=== PATIENT | female | born 1980 | race American Indian/Alaskan Native ===

== ENCOUNTER 2018-04-19 10:34 | Emergency (ER) | payer MEDICARE ==
[2018-04-19] MEDS ORDERED: HCTZ PO ONE (11:05)
[2018-04-19] MEDS ORDERED: DELTASONE PO ONE (11:05)
[2018-04-19] MEDS ORDERED: ATROVENT IH ONE (11:05)
[2018-04-19] MEDS ORDERED: PROVENTIL IH ONE (11:05)
--- NOTE | 2018-04-19 11:12 | Emergency Department Report ---
- General Chief Complaint: Adult Asthma Stated Complaint: ASTHMA Source: patient Mode of arrival: Ambulatory Limitations: No Limitations - History of Present Illness Initial Comments: 37-year-old female presents the ED with complaint of cough, runny nose, wheezing times one day. The patient and decided to come to the ER for further evaluation. Patient states she used her inhaler, however, it did not help. Reports history of hypertension, states ran out of her hydrochlorothiazide and triamterene a few days ago. MD Complaint: cough, rhinorrhea, nasal congestion -: days(s) (1) Severity: mild Consistency: intermittent Improves With: nothing Worsens With: nothing Associated Symptoms: rhinorrhea, cough. denies: fever, chills Treatments Prior to Arrival: other (albuterol inhaler) - Related Data Previous Rx's Medication Instructions Recorded Last Taken Type ALBUTEROL Inhaler(NF) [VENTOLIN 1 puff IH Q4HR PRN #1 inha 04/19/18 Unknown Rx Inhaler(NF)] Benzonatate [Tessalon Perles] 100 mg PO Q8HR PRN #20 capsule 04/19/18 Unknown Rx Triamter/Hctz 37.5-25 mg 1 tab PO QDAY #30 tablet 04/19/18 Unknown Rx [Maxzide-25] predniSONE [Prednisone] 50 mg PO DAILY #5 tablet 04/19/18 Unknown Rx Allergies Allergy/AdvReac Type Severity Reaction Status Date / Time No Known Allergies Allergy Verified 04/19/18 10:38 ED Review of Systems ROS: Stated complaint: ASTHMA Other details as noted in HPI Comment: All other systems reviewed and negative Constitutional: chills. denies: fever Respiratory: cough, wheezing Cardiovascular: denies: chest pain ED Past Medical Hx - Past Medical History Previous Medical History?: Yes Hx Hypertension: Yes (non-compliant) Hx Asthma: Yes - Surgical History Past Surgical History?: No - Social History Smoking Status: Never Smoker Substance Use Type: None - Medications Home Medications: Home Medications Medication Instructions Recorded Confirmed Last Taken Type ALBUTEROL Inhaler(NF) [VENTOLIN 1 puff IH Q4HR PRN #1 inha 04/19/18 Unknown Rx Inhaler(NF)] Benzonatate [Tessalon Perles] 100 mg PO Q8HR PRN #20 capsule 04/19/18 Unknown Rx Triamter/Hctz 37.5-25 mg 1 tab PO QDAY #30 tablet 04/19/18 Unknown Rx [Maxzide-25] predniSONE [Prednisone] 50 mg PO DAILY #5 tablet 04/19/18 Unknown Rx ED Physical Exam - General Limitations: No Limitations General appearance: alert, in no apparent distress - Head Head exam: Present: atraumatic, normocephalic - Eye Eye exam: Present: normal appearance - ENT ENT exam: Present: mucous membranes moist - Neck Neck exam: Present: normal inspection - Respiratory Respiratory exam: Present: wheezes. Absent: respiratory distress - Cardiovascular Cardiovascular Exam: Present: normal rhythm, tachycardia - GI/Abdominal GI/Abdominal exam: Present: soft. Absent: distended - Extremities Exam Extremities exam: Present: normal inspection - Neurological Exam Neurological exam: Present: alert, oriented X3 - Psychiatric Psychiatric exam: Present: normal affect, normal mood - Skin Skin exam: Present: warm, dry, intact, normal color ED Course Vital Signs 04/19/18 04/19/18 04/19/18 10:38 11:04 12:56 Temperature 97.3 F L 97.8 F Pulse Rate 104 H 94 H 80 Respiratory 20 18 14 Rate Blood Pressure 205/112 Blood Pressure 174/104 174/98 [Right] O2 Sat by Pulse 97 97 100 Oximetry ED Medical Decision Making - Medical Decision Making 37-year-old female with URI symptoms and asthma exacerbation. Patient in no respiratory distress, however wheezing present on exam. O2 sats normal. Blood pressure initially elevated due to noncompliance with medications. Hydrochlorothiazide 25 mg given. Nebulizer treatment and prednisone and also given. Wheezing resolved. Will discharge at this time. Outpatient follow-up given. Refills of medications given. - Differential Diagnosis asthma, URI Critical care attestation.: If time is entered above; I have spent that time in minutes in the direct care of this critically ill patient, excluding procedure time. ED Disposition Clinical Impression: Asthma with acute exacerbation, Essential hypertension Disposition: TO HOME OR SELFCARE Is pt being admited?: No Condition: Stable Instructions: Asthma (ED) Prescriptions: ALBUTEROL Inhaler(NF) [VENTOLIN Inhaler(NF)] 1 puff IH Q4HR PRN #1 inha PRN Reason: Wheezing Benzonatate [Tessalon Perles] 100 mg PO Q8HR PRN #20 capsule PRN Reason: Cough predniSONE [Prednisone] 50 mg PO DAILY #5 tablet Triamter/Hctz 37.5-25 mg [Maxzide-25] 1 tab PO QDAY #30 tablet Referrals: [facility] [Provider Group] - 3-5 Days OCHOA MANRIQUE MD [Staff Physician] - 3-5 Days Time of Disposition: 12:49
[2018-04-19 14:16] VITALS: BP 174/98
== END 2018-04-19 12:56 | disposition home or self-care (01) ==
LOC: ED 10:34
DX: J45.901 Unspecified asthma with (acute) exacerbation (principal); I10 Essential (primary) hypertension; J06.9 Acute upper respiratory infection, unspecified
CPT/HCPCS: 94640; 99283; J7512

== ENCOUNTER 2018-07-24 01:53 | Emergency (ER) | payer MEDICARE, MEDICAID ==
[2018-07-24] MEDS ORDERED: PROVENTIL IH ONE (02:16)
[2018-07-24] MEDS ORDERED: DELTASONE PO ONE (02:17)
[2018-07-24] MEDS ORDERED: IBUPROFEN PO ONE (02:20)
--- NOTE | 2018-07-24 02:39 | XRay Report ---
PROCEDURE: XR CHEST ROUTINE 2V TECHNIQUE: 2 views HISTORY: SOB with asthma COMPARISONS: 06/13/2018 FINDINGS: No infiltrate, pleural effusion, or pneumothorax seen. The cardiomediastinal silhouette is normal. Normal lung inflation. IMPRESSION: Negative chest. This document is electronically signed by Maco Batres MD., July 24 2018 02:37:41 AM ET
--- NOTE | 2018-07-24 07:24 | Emergency Department Report ---
ED Asthma HPI - General Chief Complaint: Adult Asthma Stated Complaint: ASTHMA Time Seen by Provider: 07/24/18 07:15 Source: patient Mode of arrival: Ambulatory Limitations: No Limitations - History of Present Illness Initial Comments: This is a 38-year-old female nontoxic, well nourished in appearance, no acute signs of distress presents to the ED with c/o of acute on chronic asthma exacerbation. Patient stated she is out of her albuterol inhaler 1 month. Patient stated that she has seasonal allergies to pollen and has been outside that might have triggered her symptoms. Patient denies any cough. Patient denies any sick contact. Patient denies any recent travels, long car, recent hospital stays. Patient denies any calf pain or calf tenderness. Patient denies any chest pain, short of breath, fever, chills, nausea, vomiting, hemoptysis, numbness, tingling, headache or stiff neck. Past medical history includes asthma. MD Complaint: "asthma attack", wheezing -: This morning Asthma History: childhood onset Severity: mild Context: ran out of meds Associated Symptoms: none - Related Data Previous Rx's Medication Instructions Recorded Last Taken Type Triamter/Hctz 37.5-25 mg 1 tab PO QDAY #30 tablet 04/19/18 Unknown Rx [Maxzide-25] ALBUTEROL Inhaler(NF) [VENTOLIN 1 puff IH Q4HR PRN #1 inha 06/14/18 Unknown Rx Inhaler(NF)] Benzonatate [Tessalon Perles] 100 mg PO Q8HR PRN #20 capsule 06/14/18 Unknown Rx predniSONE [Prednisone] 50 mg PO DAILY #5 tablet 06/14/18 Unknown Rx ALBUTEROL Inhaler(NF) [VENTOLIN 2 puff IH Q4-6H PRN #1 inha 07/24/18 Unknown Rx Inhaler(NF)] Prednisone [predniSONE 10 mg 10 mg PO .TAPER #1 tab.ds.pk 07/24/18 Unknown Rx (6-Day Pack, 21 Tabs)] Allergies Allergy/AdvReac Type Severity Reaction Status Date / Time No Known Allergies Allergy Verified 04/19/18 10:38 ED Review of Systems ROS: Stated complaint: ASTHMA Other details as noted in HPI Constitutional: denies: chills, fever Eyes: denies: eye pain, eye discharge, vision change ENT: denies: ear pain, throat pain Respiratory: shortness of breath, wheezing. denies: cough Cardiovascular: denies: chest pain, palpitations Endocrine: no symptoms reported Gastrointestinal: denies: abdominal pain, nausea, diarrhea Genitourinary: denies: urgency, dysuria, discharge Musculoskeletal: denies: back pain, joint swelling, arthralgia Skin: denies: rash, lesions Neurological: denies: headache, weakness, paresthesias Psychiatric: denies: anxiety, depression Hematological/Lymphatic: denies: easy bleeding, easy bruising ED Past Medical Hx - Past Medical History Previous Medical History?: Yes Hx Hypertension: Yes (non-compliant) Hx Asthma: Yes Additional medical history: Seasonal Allergies - Surgical History Past Surgical History?: No - Social History Smoking Status: Never Smoker - Medications Home Medications: Home Medications Medication Instructions Recorded Confirmed Last Taken Type Triamter/Hctz 37.5-25 mg 1 tab PO QDAY #30 tablet 04/19/18 Unknown Rx [Maxzide-25] ALBUTEROL Inhaler(NF) [VENTOLIN 1 puff IH Q4HR PRN #1 inha 06/14/18 Unknown Rx Inhaler(NF)] Benzonatate [Tessalon Perles] 100 mg PO Q8HR PRN #20 capsule 06/14/18 Unknown Rx predniSONE [Prednisone] 50 mg PO DAILY #5 tablet 06/14/18 Unknown Rx ALBUTEROL Inhaler(NF) [VENTOLIN 2 puff IH Q4-6H PRN #1 inha 07/24/18 Unknown Rx Inhaler(NF)] Prednisone [predniSONE 10 mg 10 mg PO .TAPER #1 tab.ds.pk 07/24/18 Unknown Rx (6-Day Pack, 21 Tabs)] ED Physical Exam - General Limitations: No Limitations General appearance: alert, in no apparent distress - Head Head exam: Present: atraumatic, normocephalic - Eye Eye exam: Present: normal appearance - Neck Neck exam: Present: normal inspection, full ROM. Absent: tenderness, meningismus, lymphadenopathy - Respiratory Respiratory exam: Present: normal lung sounds bilaterally. Absent: respiratory distress, wheezes, rales, rhonchi, stridor, chest wall tenderness, accessory muscle use, decreased breath sounds, prolonged expiratory - Cardiovascular Cardiovascular Exam: Present: regular rate, normal rhythm, normal heart sounds. Absent: irregular rhythm, systolic murmur, diastolic murmur, rubs, gallop - Extremities Exam Extremities exam: Present: normal inspection, full ROM - Back Exam Back exam: Present: normal inspection, full ROM - Neurological Exam Neurological exam: Present: alert, oriented X3 - Psychiatric Psychiatric exam: Present: normal affect, normal mood - Skin Skin exam: Present: warm, dry, intact, normal color. Absent: rash ED Course Vital Signs 07/24/18 07/24/18 07/24/18 02:05 02:27 02:50 Temperature 97.7 F Pulse Rate 107 H Pulse Rate [ 106 H Anterior Bilateral Throughout] Respiratory 20 20 Rate Respiratory 16 Rate [Anterior Bilateral Throughout] Blood Pressure 162/102 O2 Sat by Pulse 97 Oximetry 07/24/18 07/24/18 03:02 03:27 Temperature Pulse Rate Pulse Rate [ 120 H Anterior Bilateral Throughout] Respiratory 20 Rate Respiratory 16 Rate [Anterior Bilateral Throughout] Blood Pressure O2 Sat by Pulse Oximetry - Reevaluation(s) Reevaluation #1: 07/24/18 07:24 Patient is speaking in full sentences with no signs of distress noted. ED Medical Decision Making - Medical Decision Making This is a 38-year-old male that presents with asthma exacerbation. Patient is stable and was examined by me. Chest x-ray has been obtained and dictated by the radiologist within normal limits. Prior to my interview and exam RN stated that patient had bilateral recent upper lower lobes. Patient is notified of the x-ray report with no questions noted by the patient. Patient did receive breathing treatment and steroids in the ED which patient the symptoms has resolved and subsided. Posttreatment and there is no wheezing upon auscultation. Patient is discharged with albuterol and prednisone. Patient was referred to Follow-up with a primary care doctor in 3-5 days or if symptoms worsen and continue return to emergency room as soon as possible. At time of discharge, the patient does not seem toxic or ill in appearance. No acute signs of distress noted. Patient agrees to discharge treatment plan of care. No further questions noted by the patient. This chart is dictated with using [employer] Dictation [employer] Critical care attestation.: If time is entered above; I have spent that time in minutes in the direct care of this critically ill patient, excluding procedure time. ED Disposition Clinical Impression: Asthma exacerbation Qualifiers: Asthma severity: mild Asthma persistence: intermittent Qualified Code(s): J45.21 - Mild intermittent asthma with (acute) exacerbation Disposition: - TO HOME OR SELFCARE Is pt being admited?: No Does the pt Need Aspirin: No Condition: Stable Instructions: Asthma (ED) Additional Instructions: Follow-up with a primary care doctor in 3-5 days or if symptoms worsen and continue return to emergency room as soon as possible. Prescriptions: Prednisone [predniSONE 10 mg (6-Day Pack, 21 Tabs)] 10 mg PO .TAPER #1 tab.ds.pk ALBUTEROL Inhaler(NF) [VENTOLIN Inhaler(NF)] 2 puff IH Q4-6H PRN #1 inha PRN Reason: Wheezing Referrals: [facility] JANEENCOSTA MD FRANCY [Primary Care Provider] - 3-5 Days PRIMARY CAREMD [Referring] - 3-5 Days KAITLIN BRUNNER MD [Staff Physician] - 3-5 Days [facility] [Outside] - 3-5 Days Forms: Work/School Release Form(ED)
[2018-07-24 08:29] VITALS: BP 140/90
== END 2018-07-24 08:04 | disposition home or self-care (01) ==
LOC: ED 01:53
DX: J45.901 Unspecified asthma with (acute) exacerbation (principal); I10 Essential (primary) hypertension
CPT/HCPCS: 71046; 94640; 99283; J7512

== ENCOUNTER 2018-09-16 17:00 | Emergency (ER) | payer MEDICARE ==
[2018-09-16] MEDS ORDERED: PROVENTIL IH ONE (17:42)
[2018-09-16] MEDS ORDERED: ATROVENT IH ONE (17:42)
[2018-09-16] MEDS ORDERED: MAGNESIUM SULFATE 2GM/50ML 2 GM/50 ML BAG IV ONE (17:43)
[2018-09-16] MEDS ORDERED: SOLU-Medrol IV ONE (17:43)
--- NOTE | 2018-09-16 17:48 | Emergency Department Report ---
HPI - General Chief Complaint: Adult Asthma Time Seen by Provider: 09/16/18 17:36 - HPI HPI: Room 8 The patient is a 38-year-old female presenting with chief complaint shortness of breath. The patient states her asthma has been "flaring up" for the past 2-3 days. Patient states she's been using her inhaler at home with minimal improvement. Patient states her shortness of breath began to increase prompting her to call EMS last night. Patient was given nebulizers and improved. The patient states 06:00 this morning shortness of breath return prompting her to call EMS again. Patient was administered a breathing treatment prior to arrival states she feels improved somewhat Location: [See above] Duration: [See above] Quality: [See above] Severity: [See above] Modifying factors: [see above] Context: [see above] Mode of transportation: [not driving] ED Past Medical Hx - Past Medical History Previous Medical History?: Yes Hx Hypertension: Yes (non-compliant) Hx Asthma: Yes Additional medical history: Seasonal Allergies - Surgical History Past Surgical History?: No - Family History Family history: no significant - Social History Smoking Status: Never Smoker Substance Use Type: None - Medications Home Medications: Home Medications Medication Instructions Recorded Confirmed Last Taken Type Triamter/Hctz 37.5-25 mg 1 tab PO QDAY #30 tablet 04/19/18 Unknown Rx [Maxzide-25] ALBUTEROL Inhaler(NF) [VENTOLIN 1 puff IH Q4HR PRN #1 inha 06/14/18 Unknown Rx Inhaler(NF)] Benzonatate [Tessalon Perles] 100 mg PO Q8HR PRN #20 capsule 06/14/18 Unknown Rx predniSONE [Prednisone] 50 mg PO DAILY #5 tablet 06/14/18 Unknown Rx ALBUTEROL Inhaler(NF) [VENTOLIN 2 puff IH Q4-6H PRN #1 inha 07/24/18 Unknown Rx Inhaler(NF)] Prednisone [predniSONE 10 mg 10 mg PO .TAPER #1 tab.ds.pk 07/24/18 Unknown Rx (6-Day Pack, 21 Tabs)] ALBUTEROL Inhaler (OR & NICU) 2 puff IH QID PRN #1 inhalation 09/16/18 Unknown Rx [Proair] Prednisone [predniSONE 10 mg 10 mg PO .TAPER #1 tab.ds.pk 09/16/18 Unknown Rx (6-Day Pack, 21 Tabs)] amLODIPine [Norvasc] 5 mg PO DAILY #90 tab 09/16/18 Unknown Rx ED Review of Systems ROS: Stated complaint: VIKI Other details as noted in HPI Constitutional: denies: fever Eyes: denies: eye pain ENT: denies: throat pain Respiratory: cough, shortness of breath, wheezing Cardiovascular: denies: chest pain Endocrine: no symptoms reported Gastrointestinal: denies: abdominal pain Genitourinary: denies: dysuria Musculoskeletal: denies: back pain Neurological: denies: headache Physical Exam - Physical Exam Vital Signs: Vital Signs 09/16/18 17:01 Temperature 98.4 F Pulse Rate 98 H Respiratory 20 Rate Blood Pressure 161/95 [Left] O2 Sat by Pulse 95 Oximetry Physical Exam: GENERAL: The patient is well-developed well-nourished female lying on stretcher not appearing to be in acute distress. [] HEENT: Normocephalic. Atraumatic. Extraocular motions are intact. Patient has moist mucous membranes. NECK: Supple. Trachea midline CHEST/LUNGS: Faint occasional wheezing bilaterally. There is no respiratory distress noted. HEART/CARDIOVASCULAR: Regular. There is no tachycardia. There is no gallop rub or murmur. ABDOMEN: Abdomen is soft, nontender. Patient has normal bowel sounds. There is no abdominal distention. SKIN: There is no rash. There is no edema. There is no diaphoresis. NEURO: The patient is awake, alert, and oriented. The patient is cooperative. The patient has normal speech MUSCULOSKELETAL: There is no evidence of acute injury. ED Course Vital Signs 09/16/18 17:01 Temperature 98.4 F Pulse Rate 98 H Respiratory 20 Rate Blood Pressure 161/95 [Left] O2 Sat by Pulse 95 Oximetry ED Medical Decision Making - Radiology Data Radiology results: report reviewed (chest x-ray), image reviewed (chest x-ray) interpreted by me: Chest x-ray-no focal infiltrates, no pneumothorax [facility] [address] [place] [address] XRay Report Signed Patient: ADAL FLETCHER MR#: [id number] : 1980 Acct:[id number] Age/Sex: 38 / F ADM Date: 09/16/18 Loc: ED Attending Dr: Ordering Physician: DADA MONTANEZ Date of Service: 09/16/18 Procedure(s): XR chest 1V ap Accession Number(s): [id number] cc: DADA MONTANEZ Fluoro Time In Minutes: PROCEDURE: XR CHEST 1V AP TECHNIQUE: Chest radiograph single view. HISTORY: SOB FINDINGS: Frontal view of the chest was acquired and compared to the prior examination of July 24, 2018. The heart is normal in size. The lungs appear clear. The pleura and mediastinum are within normal limits. IMPRESSION: No active disease in the chest This document is electronically signed by Song Michaels MD., September 16 2018 06:03:30 PM ET Transcribed By: LUCRETIA Dictated By: SONG MICHAELS MD Electronically Authenticated By: SONG MICHAELS MD Signed Date/Time: 09/16/181804 DD/ 50 TD/TT: 09/16/181750 - Differential Diagnosis asthma exacerbation Critical care attestation.: If time is entered above; I have spent that time in minutes in the direct care of this critically ill patient, excluding procedure time. ED Disposition Clinical Impression: Acute asthma exacerbation, Shortness of breath Disposition: DC-01 TO HOME OR SELFCARE Is pt being admited?: No Does the pt Need Aspirin: No Condition: Stable Instructions: Asthma (ED) Additional Instructions: Return to the emergency department immediately should you develop worsening symptoms, fever, inability to tolerate food or liquid or any other concerns. Prescriptions: amLODIPine [Norvasc] 5 mg PO DAILY #90 tab Prednisone [predniSONE 10 mg (6-Day Pack, 21 Tabs)] 10 mg PO .TAPER #1 tab.ds.pk ALBUTEROL Inhaler (OR & NICU) [Proair] 2 puff IH QID PRN #1 inhalation PRN Reason: Shortness Of Breath Referrals: GONZALO BURGER MD [Primary Care Provider] - 3-5 Days KAITLIN TREVINO MD [Staff Physician] - 3-5 Days Time of Disposition: 19:28
--- NOTE | 2018-09-16 18:05 | XRay Report ---
PROCEDURE: XR CHEST 1V AP TECHNIQUE: Chest radiograph single view. HISTORY: SOB FINDINGS: Frontal view of the chest was acquired and compared to the prior examination of July 24. The heart is normal in size. The lungs appear clear. The pleura and mediastinum are within normal garcia its. IMPRESSION: No active disease in the chest This document is electronically signed by Song Michaels MD., September 16 2018 06:03:30 PM ET
[2018-09-16 20:02] VITALS: BP 143/86
== END 2018-09-16 20:30 | disposition home or self-care (01) ==
LOC: ED 17:00
DX: J45.901 Unspecified asthma with (acute) exacerbation (principal); I10 Essential (primary) hypertension
CPT/HCPCS: 71045; 94640; 96365; 96375; 99284; J2930; J3475

== ENCOUNTER 2018-09-20 03:57 | Emergency (ER) | payer MEDICARE ==
[2018-09-20 05:37] VITALS: BP 172/106
[2018-09-20] MEDS ORDERED: DUONEB *Not for PRN Use IH ONE (05:39)
[2018-09-20 06:14] LABS: Alanine Aminotransferase 5 units/L (7-56); Albumin 3.9 g/dL (3.9-5); BUN/Creatinine Ratio 10; Blood Urea Nitrogen 9 mg/dL (7-17); Calcium 8.7 mg/dL (8.4-10.2); Hemolysis Index 7
--- NOTE | 2018-09-20 06:14 | XRay Report ---
PROCEDURE: XR CHEST 1V AP TECHNIQUE: Chest radiograph single view. HISTORY: conner COMPARISONS: 09/16/2018 . FINDINGS: Mild patient rotation. No mediastinal shift. Cardiac silhouette is not enlarged. No pneumothorax, eff usion, or focal pulmonary opacity identified. No acute skeletal findings. IMPRESSION: No acute pulmonary finding identified. This document is electronically signed by Darrius Verduzco MD., September 20 2018 06:13:09 AM ET
[2018-09-20 06:21] LABS: Basophils % (Auto) 0.6 % (0.0-1.8); Eosinophils # (Auto) 0.2 K/mm3 (0.0-0.4); Eosinophils % (Auto) 3.1 % (0.0-4.3); Hematocrit 36.4 % (30.3-42.9); Hemoglobin 11.9 gm/dl (10.1-14.3); Lymphocytes # (Auto) 0.5 K/mm3 (1.2-5.4); Lymphocytes % (Auto) 6.8 % (13.4-35.0); Mean Corpuscular HGB Conc 33 % (30-34); Mean Corpuscular Volume 80 fl (79-97); Monocytes # (Auto) 0.2 K/mm3 (0.0-0.8); Monocytes % (Auto) 2.1 % (0.0-7.3); Platelet Count 321 K/mm3 (140-440); Red Blood Count 4.53 M/mm3 (3.65-5.03); Red Cell Distribution Width 15.8 % (13.2-15.2)
--- NOTE | 2018-09-20 07:30 | Emergency Department Report ---
ED Shortness of Breath HPI - General Chief Complaint: Dyspnea/Respdistress Stated Complaint: VIKI Time Seen by Provider: 09/20/18 07:24 Source: patient, EMS Mode of arrival: Stretcher Limitations: No Limitations - History of Present Illness Initial Comments: 38-year-old female with history of asthma who presents to ED with report of asthma attack, onset last night. Patient states she used her albuterol inhaler without relief. Does not have a nebulizer machine at home. Reports dry cough, denies fever. Patient given Solu-Medrol and albuterol nebs by EMS. Complaint: "asthma attack" -: Last night Severity: moderate Consistency: constant Improves With: nothing Worsens With: nothing Known History Of: asthma Associated Symptoms: cough Treatments Prior to Arrival: bronchodilator - Related Data Home Oxygen Therapy: No Previous Rx's Medication Instructions Recorded Last Taken Type Triamter/Hctz 37.5-25 mg 1 tab PO QDAY #30 tablet 04/19/18 Unknown Rx [Maxzide-25] ALBUTEROL Inhaler(NF) [VENTOLIN 1 puff IH Q4HR PRN #1 inha 06/14/18 Unknown Rx Inhaler(NF)] Benzonatate [Tessalon Perles] 100 mg PO Q8HR PRN #20 capsule 06/14/18 Unknown Rx predniSONE [Prednisone] 50 mg PO DAILY #5 tablet 06/14/18 Unknown Rx ALBUTEROL Inhaler(NF) [VENTOLIN 2 puff IH Q4-6H PRN #1 inha 07/24/18 Unknown Rx Inhaler(NF)] Prednisone [predniSONE 10 mg 10 mg PO .TAPER #1 tab.ds.pk 07/24/18 Unknown Rx (6-Day Pack, 21 Tabs)] ALBUTEROL Inhaler (OR & NICU) 2 puff IH QID PRN #1 inhalation 09/16/18 Unknown Rx [Proair] Prednisone [predniSONE 10 mg 10 mg PO .TAPER #1 tab.ds.pk 09/16/18 Unknown Rx (6-Day Pack, 21 Tabs)] amLODIPine [Norvasc] 5 mg PO DAILY #90 tab 09/16/18 Unknown Rx Albuterol Sulfate [Proventil Hfa] 2 puff IH Q4HR PRN #1 hfa.aer.ad 09/20/18 Unknown Rx predniSONE [Deltasone] 50 mg PO QDAY #5 tab 09/20/18 Unknown Rx Allergies Allergy/AdvReac Type Severity Reaction Status Date / Time No Known Allergies Allergy Verified 09/16/18 17:33 ED Review of Systems ROS: Stated complaint: VIKI Other details as noted in HPI Comment: All other systems reviewed and negative Constitutional: denies: chills, fever Respiratory: cough, wheezing ED Past Medical Hx - Past Medical History Hx Hypertension: Yes (non-compliant) Hx Asthma: Yes Additional medical history: Seasonal Allergies - Social History Smoking Status: Never Smoker Substance Use Type: None - Medications Home Medications: Home Medications Medication Instructions Recorded Confirmed Last Taken Type Triamter/Hctz 37.5-25 mg 1 tab PO QDAY #30 tablet 04/19/18 Unknown Rx [Maxzide-25] ALBUTEROL Inhaler(NF) [VENTOLIN 1 puff IH Q4HR PRN #1 inha 06/14/18 Unknown Rx Inhaler(NF)] Benzonatate [Tessalon Perles] 100 mg PO Q8HR PRN #20 capsule 06/14/18 Unknown Rx predniSONE [Prednisone] 50 mg PO DAILY #5 tablet 06/14/18 Unknown Rx ALBUTEROL Inhaler(NF) [VENTOLIN 2 puff IH Q4-6H PRN #1 inha 07/24/18 Unknown Rx Inhaler(NF)] Prednisone [predniSONE 10 mg 10 mg PO .TAPER #1 tab.ds.pk 07/24/18 Unknown Rx (6-Day Pack, 21 Tabs)] ALBUTEROL Inhaler (OR & NICU) 2 puff IH QID PRN #1 inhalation 09/16/18 Unknown Rx [Proair] Prednisone [predniSONE 10 mg 10 mg PO .TAPER #1 tab.ds.pk 09/16/18 Unknown Rx (6-Day Pack, 21 Tabs)] amLODIPine [Norvasc] 5 mg PO DAILY #90 tab 09/16/18 Unknown Rx Albuterol Sulfate [Proventil Hfa] 2 puff IH Q4HR PRN #1 hfa.aer.ad 09/20/18 Unknown Rx predniSONE [Deltasone] 50 mg PO QDAY #5 tab 09/20/18 Unknown Rx ED Physical Exam - General Limitations: No Limitations General appearance: alert, in no apparent distress - Head Head exam: Present: atraumatic, normocephalic - Eye Eye exam: Present: normal appearance - ENT ENT exam: Present: mucous membranes moist - Neck Neck exam: Present: normal inspection - Respiratory Respiratory exam: Present: normal lung sounds bilaterally. Absent: respiratory distress - Cardiovascular Cardiovascular Exam: Present: regular rate, normal rhythm - GI/Abdominal GI/Abdominal exam: Present: soft. Absent: distended - Extremities Exam Extremities exam: Present: normal inspection - Neurological Exam Neurological exam: Present: alert, oriented X3 - Psychiatric Psychiatric exam: Present: normal affect, normal mood - Skin Skin exam: Present: warm, dry, intact, normal color ED Course Vital Signs 09/20/18 09/20/18 09/20/18 05:35 05:50 06:27 Temperature 98.0 F Pulse Rate 98 H Pulse Rate [ 104 H Throughout] Respiratory 29 H 24 Rate Respiratory 18 Rate [ Throughout] Blood Pressure 172/106 [Right] O2 Sat by Pulse 92 97 Oximetry 09/20/18 06:28 Temperature Pulse Rate Pulse Rate [ Throughout] Respiratory Rate Respiratory Rate [ Throughout] Blood Pressure [Right] O2 Sat by Pulse 97 Oximetry ED Medical Decision Making - Lab Data Result diagrams: 09/20/18 05:52 09/20/18 05:52 - Radiology Data Radiology results: report reviewed, image reviewed - Medical Decision Making - hx asthma - albuterol, solumedrol from EMS - alb/ atr nebs here in ED - wheezing resolved, no resp distress, feeling much better - Differential Diagnosis asthma, pneumonia Critical care attestation.: If time is entered above; I have spent that time in minutes in the direct care of this critically ill patient, excluding procedure time. ED Disposition Clinical Impression: Acute asthma exacerbation Disposition: - TO HOME OR SELFCARE Is pt being admited?: No Condition: Stable Instructions: Asthma (ED) Prescriptions: predniSONE [Deltasone] 50 mg PO QDAY #5 tab Albuterol Sulfate [Proventil Hfa] 2 puff IH Q4HR PRN #1 hfa.aer.ad PRN Reason: Wheezing Referrals: ARTURO MERCADO MD [Primary Care Provider] - 3-5 Days PRIMARY [facility]ARE, [Referring] - 3-5 Days [facility] [Provider Group] - 3-5 Days Time of Disposition: 07:32
== END 2018-09-20 07:59 | disposition home or self-care (01) ==
LOC: ED 03:57
DX: J45.901 Unspecified asthma with (acute) exacerbation (principal); I10 Essential (primary) hypertension; Z79.899 Other long term (current) drug therapy
CPT/HCPCS: 36415; 71045; 80053; 85025; 94640

== ENCOUNTER 2019-03-23 02:10 | Emergency (ER) | payer MEDICARE ==
[2019-03-23] MEDS ORDERED: ALBUTEROL 2.5 MG/3 ML NEBU IH ONE (02:32)
[2019-03-23] MEDS ORDERED: IPRATROPIUM 0.02% NEBU 2.5 ML IH ONE (02:32)
[2019-03-23] MEDS ORDERED: predniSONE 20 MG TAB PO ONE (02:33)
[2019-03-23 05:20] VITALS: BP 142/86
--- NOTE | 2019-03-23 05:22 | Emergency Department Report ---
ED Asthma HPI - General Chief Complaint: Dyspnea/Respdistress Stated Complaint: VIKI Time Seen by Provider: 03/23/19 02:32 Source: patient, EMS Mode of arrival: Stretcher Limitations: No Limitations - History of Present Illness Initial Comments: This is a 38-year-old [place] female who has history of asthma who states she's had increased wheezing cough for last 2 days. Patient no longer has medication for her nebulizer machine as she's run out. Patient denies fevers chills nausea vomiting diarrhea or sore throat or neck stiffness. Patient states cough is not productive. Patient states shortness of breath is worse with exertion. MD Complaint: "asthma attack" - Related Data Previous Rx's Medication Instructions Recorded Last Taken Type Triamter/Hctz 37.5-25 mg 1 tab PO QDAY #30 tablet 04/19/18 Unknown Rx [Maxzide-25] ALBUTEROL Inhaler(NF) [VENTOLIN 1 puff IH Q4HR PRN #1 inha 06/14/18 Unknown Rx Inhaler(NF)] Benzonatate [Tessalon Perles] 100 mg PO Q8HR PRN #20 capsule 06/14/18 Unknown Rx predniSONE [Prednisone] 50 mg PO DAILY #5 tablet 06/14/18 Unknown Rx ALBUTEROL Inhaler(NF) [VENTOLIN 2 puff IH Q4-6H PRN #1 inha 07/24/18 Unknown Rx Inhaler(NF)] Prednisone [predniSONE 10 mg 10 mg PO .TAPER #1 tab.ds.pk 09/16/18 Unknown Rx (6-Day Pack, 21 Tabs)] amLODIPine 5 mg PO DAILY #90 tab 09/16/18 Unknown Rx Albuterol Sulfate [Proventil Hfa] 2 puff IH Q4HR PRN #1 hfa.aer.ad 09/20/18 Unknown Rx predniSONE [Deltasone] 50 mg PO QDAY #5 tab 09/20/18 Unknown Rx ALBUTEROL Inhaler (OR & NICU) 2 puff IH QID PRN #1 inhalation 11/21/18 Unknown Rx [ProAir HFA Inhaler] Prednisone [predniSONE 10 mg 10 mg PO .TAPER #1 tab.ds.pk 11/21/18 Unknown Rx (6-Day Pack, 21 Tabs)] ALBUTEROL Inhaler (OR & NICU) 2 puff IH QID PRN #1 inhalation 03/23/19 Unknown Rx [ProAir HFA Inhaler] ALBUTEROL NEB's [Proventil 0.083% 2.5 mg IH TID PRN #20 neb 03/23/19 Unknown Rx NEBS] predniSONE [Deltasone] 20 mg PO QDAY #5 tab 03/23/19 Unknown Rx Allergies Allergy/AdvReac Type Severity Reaction Status Date / Time No Known Allergies Allergy Verified 09/16/18 17:33 ED Review of Systems ROS: Stated complaint: VIKI Other details as noted in HPI Comment: All other systems reviewed and negative ED Past Medical Hx - Past Medical History Previous Medical History?: Yes Hx Hypertension: Yes (non-compliant) Hx Asthma: Yes Additional medical history: Seasonal Allergies - Surgical History Past Surgical History?: No - Social History Smoking Status: Never Smoker Substance Use Type: None - Medications Home Medications: Home Medications Medication Instructions Recorded Confirmed Last Taken Type Triamter/Hctz 37.5-25 mg 1 tab PO QDAY #30 tablet 04/19/18 Unknown Rx [Maxzide-25] ALBUTEROL Inhaler(NF) [VENTOLIN 1 puff IH Q4HR PRN #1 inha 06/14/18 Unknown Rx Inhaler(NF)] Benzonatate [Tessalon Perles] 100 mg PO Q8HR PRN #20 capsule 06/14/18 Unknown Rx predniSONE [Prednisone] 50 mg PO DAILY #5 tablet 06/14/18 Unknown Rx ALBUTEROL Inhaler(NF) [VENTOLIN 2 puff IH Q4-6H PRN #1 inha 07/24/18 Unknown Rx Inhaler(NF)] Prednisone [predniSONE 10 mg 10 mg PO .TAPER #1 tab.ds.pk 09/16/18 Unknown Rx (6-Day Pack, 21 Tabs)] amLODIPine 5 mg PO DAILY #90 tab 09/16/18 Unknown Rx Albuterol Sulfate [Proventil Hfa] 2 puff IH Q4HR PRN #1 hfa.aer.ad 09/20/18 Unknown Rx predniSONE [Deltasone] 50 mg PO QDAY #5 tab 09/20/18 Unknown Rx ALBUTEROL Inhaler (OR & NICU) 2 puff IH QID PRN #1 inhalation 11/21/18 Unknown Rx [ProAir HFA Inhaler] Prednisone [predniSONE 10 mg 10 mg PO .TAPER #1 tab.ds.pk 11/21/18 Unknown Rx (6-Day Pack, 21 Tabs)] ALBUTEROL Inhaler (OR & NICU) 2 puff IH QID PRN #1 inhalation 03/23/19 Unknown Rx [ProAir HFA Inhaler] ALBUTEROL NEB's [Proventil 0.083% 2.5 mg IH TID PRN #20 neb 03/23/19 Unknown Rx NEBS] predniSONE [Deltasone] 20 mg PO QDAY #5 tab 03/23/19 Unknown Rx ED Physical Exam - General Limitations: No Limitations General appearance: alert, in no apparent distress - Head Head exam: Present: atraumatic, normocephalic - Eye Eye exam: Present: normal appearance, PERRL, EOMI - ENT ENT exam: Present: mucous membranes moist - Neck Neck exam: Present: normal inspection - Respiratory Respiratory exam: Present: normal lung sounds bilaterally, respiratory distress, wheezes. Absent: rales, rhonchi - Cardiovascular Cardiovascular Exam: Present: regular rate, normal rhythm, normal heart sounds. Absent: systolic murmur, diastolic murmur, rubs, gallop - GI/Abdominal GI/Abdominal exam: Present: soft, normal bowel sounds. Absent: distended, tenderness, guarding, rebound - Extremities Exam Extremities exam: Present: normal inspection - Back Exam Back exam: Present: normal inspection - Neurological Exam Neurological exam: Present: alert, oriented X3 - Psychiatric Psychiatric exam: Present: normal affect, normal mood - Skin Skin exam: Present: warm, dry, intact, normal color. Absent: rash ED Course Vital Signs 03/23/19 03/23/19 03/23/19 02:21 02:41 03:43 Temperature 98.4 F Pulse Rate 93 H Pulse Rate [ 96 H Bilateral Throughout] Respiratory 18 18 Rate Respiratory 15 Rate [Bilateral Throughout] Blood Pressure 168/102 O2 Sat by Pulse 98 98 Oximetry ED Medical Decision Making - Medical Decision Making Patient received no treatment is feeling much improved. Medication for her nebulizer machine filled and patient will be discharged home. Critical care attestation.: If time is entered above; I have spent that time in minutes in the direct care of this critically ill patient, excluding procedure time. ED Disposition Clinical Impression: Asthma exacerbation Qualifiers: Asthma severity: mild Asthma persistence: persistent Qualified Code(s): J45.31 - Mild persistent asthma with (acute) exacerbation Disposition: DC- TO HOME OR SELFCARE Is pt being admited?: No Does the pt Need Aspirin: No Condition: Stable Instructions: Asthma (ED) Referrals: KARIE RAJPUT MD [Staff Physician] - 3-5 Days Time of Disposition: 05:22
== END 2019-03-23 05:32 | disposition home or self-care (01) ==
LOC: ED 02:10
DX: J45.901 Unspecified asthma with (acute) exacerbation (principal); I10 Essential (primary) hypertension; Z79.899 Other long term (current) drug therapy
CPT/HCPCS: 94644; 99283; J7512

== ENCOUNTER 2019-04-18 18:40 | Emergency (ER) | payer MEDICARE ==
--- NOTE | 2019-04-18 20:15 | Event Note ---
ED Screening Note Date of service: 04/18/19 Time: 20:13 ED Screening Note: 38 y o f presents with coughing and wheezing with no relief with inhaler This initial assessment/diagnostic orders/clinical plan/treatment(s) is/are subject to change based on patients health status, clinical progression and re- assessment by fellow clinical providers in the ED. Further treatment and workup at subsequent clinical providers discretion. Patient/guardian urged not to elope from the ED as their condition may be serious if not clinically assessed and managed. Initial orders include: resp treatment. sreroids acc eval
[2019-04-18] MEDS ORDERED: methylPREDNISolone Sod Succinate 125 MG/2 ML INJ IM ONE (21:19)
[2019-04-18] MEDS ORDERED: IPRATROPIUM/ALBUTEROL SULFATE 3 ML AMPUL.NEB IH ONE (21:19)
--- NOTE | 2019-04-18 23:15 | Emergency Department Report ---
ED Asthma HPI - General Chief Complaint: Adult Asthma Stated Complaint: ASTHMA/COUGH/CP Time Seen by Provider: 04/18/19 23:09 Source: patient Mode of arrival: Ambulatory Limitations: No Limitations - History of Present Illness Initial Comments: patient is a 38-year-old female that presents emergency room with complaints of asthmatic sounds, wheezing, cough. Patient states her asthma is worsening. Patient states he been taking her inhaler and nebulizer at home and she still coughing. Patient states her cough is dry. Patient denies sputum. Patient denies fever chills. Patient denies chest pain. Patient states she is not having shortness of breath at time. Patient states most of her symptoms have resolved with the treatment here. Patient states she was given a breathing treatment in the triage area she feels much better. Patient states she was also given Solu-Medrol and she feels better. MD Complaint: "asthma attack", shortness of breath, wheezing -: Sudden Asthma History: childhood onset Severity: severe Context: recent URI Associated Symptoms: dry cough. denies: fever, chest pain, hemoptysis, leg edema, syncope Treatments Prior to Arrival: inhaled bronchodilator - Related Data Current Asthma Therapy: inhaled bronchodilator Previous Rx's Medication Instructions Recorded Last Taken Type Triamter/Hctz 37.5-25 mg 1 tab PO QDAY #30 tablet 04/19/18 Unknown Rx [Maxzide-25] ALBUTEROL Inhaler(NF) [VENTOLIN 1 puff IH Q4HR PRN #1 inha 06/14/18 Unknown Rx Inhaler(NF)] Benzonatate [Tessalon Perles] 100 mg PO Q8HR PRN #20 capsule 06/14/18 Unknown Rx predniSONE [Prednisone] 50 mg PO DAILY #5 tablet 06/14/18 Unknown Rx ALBUTEROL Inhaler(NF) [VENTOLIN 2 puff IH Q4-6H PRN #1 inha 07/24/18 Unknown Rx Inhaler(NF)] Prednisone [predniSONE 10 mg 10 mg PO .TAPER #1 tab.ds.pk 09/16/18 Unknown Rx (6-Day Pack, 21 Tabs)] amLODIPine 5 mg PO DAILY #90 tab 09/16/18 Unknown Rx Albuterol Sulfate [Proventil Hfa] 2 puff IH Q4HR PRN #1 hfa.aer.ad 09/20/18 Unknown Rx predniSONE [Deltasone] 50 mg PO QDAY #5 tab 09/20/18 Unknown Rx Albuterol INH(or & Nicu Only) 2 puff IH QID PRN #1 inhalation 11/21/18 Unknown Rx [ProAir HFA Inhaler] Prednisone [predniSONE 10 mg 10 mg PO .TAPER #1 tab.ds.pk 11/21/18 Unknown Rx (6-Day Pack, 21 Tabs)] ALBUTEROL NEB's [Proventil 0.083% 2.5 mg IH TID PRN #20 neb 03/23/19 Unknown Rx NEBS] Albuterol INH(or & Nicu Only) 2 puff IH QID PRN #1 inhalation 03/23/19 Unknown Rx [ProAir HFA Inhaler] predniSONE [Deltasone] 20 mg PO QDAY #5 tab 03/23/19 Unknown Rx Doxycycline Hyclate [Doxycycline 100 mg PO Q12HR 10 Days #20 tab 04/18/19 Unknown Rx Hyclate TAB] methylPREDNISolone [Medrol 4MG 4 mg PO DAILY 6 Days #1 tab.ds.pk 04/18/19 Unknown Rx DOSEPAK (21 tabs)] Allergies Allergy/AdvReac Type Severity Reaction Status Date / Time No Known Allergies Allergy Verified 09/16/18 17:33 ED Review of Systems ROS: Stated complaint: ASTHMA/COUGH/CP Other details as noted in HPI Constitutional: denies: chills, fever Eyes: denies: eye pain, eye discharge, vision change ENT: denies: ear pain, throat pain Respiratory: cough, shortness of breath, wheezing Cardiovascular: denies: chest pain, palpitations Endocrine: no symptoms reported Gastrointestinal: denies: abdominal pain, nausea, diarrhea Genitourinary: denies: urgency, dysuria, discharge Musculoskeletal: denies: back pain, joint swelling, arthralgia Skin: denies: rash, lesions Neurological: denies: headache, weakness, paresthesias Psychiatric: denies: anxiety, depression Hematological/Lymphatic: denies: easy bleeding, easy bruising ED Past Medical Hx - Past Medical History Previous Medical History?: Yes Hx Hypertension: Yes (non-compliant) Hx Asthma: Yes Additional medical history: Seasonal Allergies - Surgical History Past Surgical History?: No - Family History Family history: no significant - Social History Smoking Status: Never Smoker Substance Use Type: None - Medications Home Medications: Home Medications Medication Instructions Recorded Confirmed Last Taken Type Triamter/Hctz 37.5-25 mg 1 tab PO QDAY #30 tablet 04/19/18 Unknown Rx [Maxzide-25] ALBUTEROL Inhaler(NF) [VENTOLIN 1 puff IH Q4HR PRN #1 inha 06/14/18 Unknown Rx Inhaler(NF)] Benzonatate [Tessalon Perles] 100 mg PO Q8HR PRN #20 capsule 06/14/18 Unknown Rx predniSONE [Prednisone] 50 mg PO DAILY #5 tablet 06/14/18 Unknown Rx ALBUTEROL Inhaler(NF) [VENTOLIN 2 puff IH Q4-6H PRN #1 inha 07/24/18 Unknown Rx Inhaler(NF)] Prednisone [predniSONE 10 mg 10 mg PO .TAPER #1 tab.ds.pk 09/16/18 Unknown Rx (6-Day Pack, 21 Tabs)] amLODIPine 5 mg PO DAILY #90 tab 09/16/18 Unknown Rx Albuterol Sulfate [Proventil Hfa] 2 puff IH Q4HR PRN #1 hfa.aer.ad 09/20/18 Unknown Rx predniSONE [Deltasone] 50 mg PO QDAY #5 tab 09/20/18 Unknown Rx Albuterol INH(or & Nicu Only) 2 puff IH QID PRN #1 inhalation 11/21/18 Unknown Rx [ProAir HFA Inhaler] Prednisone [predniSONE 10 mg 10 mg PO .TAPER #1 tab.ds.pk 11/21/18 Unknown Rx (6-Day Pack, 21 Tabs)] ALBUTEROL NEB's [Proventil 0.083% 2.5 mg IH TID PRN #20 neb 03/23/19 Unknown Rx NEBS] Albuterol INH(or & Nicu Only) 2 puff IH QID PRN #1 inhalation 03/23/19 Unknown Rx [ProAir HFA Inhaler] predniSONE [Deltasone] 20 mg PO QDAY #5 tab 03/23/19 Unknown Rx Doxycycline Hyclate [Doxycycline 100 mg PO Q12HR 10 Days #20 tab 04/18/19 Unknown Rx Hyclate TAB] methylPREDNISolone [Medrol 4MG 4 mg PO DAILY 6 Days #1 tab.ds.pk 04/18/19 Unknown Rx DOSEPAK (21 tabs)] ED Physical Exam - General Limitations: No Limitations General appearance: alert, in no apparent distress - Head Head exam: Present: atraumatic, normocephalic - Eye Eye exam: Present: normal appearance - ENT ENT exam: Present: mucous membranes moist - Neck Neck exam: Present: normal inspection - Respiratory Respiratory exam: Present: normal lung sounds bilaterally. Absent: respiratory distress, wheezes, rales - Cardiovascular Cardiovascular Exam: Present: regular rate, normal rhythm. Absent: systolic murmur, diastolic murmur, rubs, gallop - GI/Abdominal GI/Abdominal exam: Present: soft, normal bowel sounds. Absent: distended, tenderness, guarding - Rectal Rectal exam: Present: deferred - Extremities Exam Extremities exam: Present: normal inspection, full ROM. Absent: tenderness - Back Exam Back exam: Present: normal inspection, full ROM. Absent: tenderness, CVA tenderness (R) - Neurological Exam Neurological exam: Present: alert, oriented X3 - Psychiatric Psychiatric exam: Present: normal affect, normal mood - Skin Skin exam: Present: warm, dry, intact, normal color. Absent: rash ED Course Vital Signs 04/18/19 04/18/19 04/18/19 18:45 21:17 21:39 Temperature 97.5 F L 98.3 F Pulse Rate 120 H 130 H Pulse Rate [ 127 H Bilateral Breath Sounds] Respiratory 18 24 Rate Respiratory 20 Rate [Bilateral Breath Sounds] Blood Pressure 186/97 Blood Pressure 154/103 [Right] O2 Sat by Pulse 96 93 Oximetry 04/18/19 23:15 Temperature 98.1 F Pulse Rate 108 H Pulse Rate [ Bilateral Breath Sounds] Respiratory 16 Rate Respiratory Rate [Bilateral Breath Sounds] Blood Pressure Blood Pressure 140/79 [Right] O2 Sat by Pulse 97 Oximetry - Reevaluation(s) Reevaluation #1: Initial evaluation. Patient's lungs are clear. Patient responded well to treatment. Patient is stable for discharge. Patient given prescriptions. Patient given discharge instructions. Patient voiced understanding of discharge instructions. I discussed all clinical findings and clinical impression with patient. Patient agrees with plan of care and discharge. 04/18/19 23:12 ED Medical Decision Making - Medical Decision Making Patient is a 38-year-old female presents emergency room with worsening asthmatic sounds. Patient compliant with her medications. Patient responded well to therapy in the ER. Patient was given a breathing treatment as well as IM Solu- Medrol. Patient's lung sounds were clear upon evaluation. Patient does not require further evaluation ER. Patient wasn't given antibiotics and steroids for asthma exacerbation and bronchitis. Patient given discharge instructions. Patient is stable for discharge. - Differential Diagnosis asthma exac. bronchitis Critical care attestation.: If time is entered above; I have spent that time in minutes in the direct care of this critically ill patient, excluding procedure time. ED Disposition Clinical Impression: SOB (shortness of breath) Asthma Qualifiers: Asthma severity: moderate Asthma persistence: persistent Asthma complication type: with acute exacerbation Qualified Code(s): J45.41 - Moderate persistent asthma with (acute) exacerbation Disposition: - TO HOME OR SELFCARE Is pt being admited?: No Does the pt Need Aspirin: No Condition: Stable Instructions: Asthma (ED), Reactive Airways Disease (ED) Additional Instructions: Patient to follow-up with primary care in 2-3 days. Patient to return to ER if condition worsens. Patient to follow up with sas programmer to today. Patient to continue all previous medications. Patient to take all new medications as directed. Patient to increase water. Patient to take Tylenol or ibuprofen when necessary for pain. Prescriptions: Doxycycline Hyclate [Doxycycline Hyclate TAB] 100 mg PO Q12HR 10 Days #20 tab methylPREDNISolone [Medrol 4MG DOSEPAK (21 tabs)] 4 mg PO DAILY 6 Days #1 tab.ds.pk Referrals: PRIMARY CARE, [Primary Care Provider] - 2-3 Days Time of Disposition: 23:34
[2019-04-18 23:19] VITALS: BP 140/79
== END 2019-04-18 23:40 | disposition home or self-care (01) ==
LOC: ED 18:40
DX: J45.909 Unspecified asthma, uncomplicated (principal); I10 Essential (primary) hypertension; Z79.899 Other long term (current) drug therapy
CPT/HCPCS: 94640; 96372; 99282; J2930; 94644

== ENCOUNTER 2019-05-05 00:13 | Emergency (ER) | payer MEDICARE ==
[2019-05-05] MEDS ORDERED: methylPREDNISolone Sod Succinate 125 MG/2 ML INJ IV ONE (00:23)
[2019-05-05] MEDS ORDERED: IPRATROPIUM/ALBUTEROL SULFATE 3 ML AMPUL.NEB IH ONE (00:24)
--- NOTE | 2019-05-05 00:35 | Emergency Department Report ---
ED Shortness of Breath HPI - General Stated Complaint: ASTHMA Time Seen by Provider: 05/05/19 00:21 Source: patient, EMS Mode of arrival: Stretcher Limitations: No Limitations - History of Present Illness Initial Comments: Patient is a 38-year-old female that presents to emergency for asthmatic sounds. Patient states that she is having shortness of breath. Patient states she is having cough. Patient states her symptoms been going on for 2 days and are worsening. Patient states she had to call EMS because her shortness of breath got so bad. Patient denies fever and chills. Patient denies sick contact. Patient states her symptoms are better with rest and bronchodilators. Patient states her symptoms are worse with exertion. Patient states she was diagnosed with asthma at 22. Report received from EMS and EMS states they gave the patient albuterol treatment. MD Complaint: shortness of breath, cough, "asthma attack" -: Sudden Consistency: constant Improves With: rest, bronchodilators Worsens With: exertion Known History Of: asthma Associated Symptoms: cough, sputum production Treatments Prior to Arrival: bronchodilator - Related Data Home Oxygen Therapy: No Previous Rx's Medication Instructions Recorded Last Taken Type Triamter/Hctz 37.5-25 mg 1 tab PO QDAY #30 tablet 04/19/18 Unknown Rx [Maxzide-25] ALBUTEROL Inhaler(NF) [VENTOLIN 1 puff IH Q4HR PRN #1 inha 06/14/18 Unknown Rx Inhaler(NF)] Benzonatate [Tessalon Perles] 100 mg PO Q8HR PRN #20 capsule 06/14/18 Unknown Rx predniSONE [Prednisone] 50 mg PO DAILY #5 tablet 06/14/18 Unknown Rx ALBUTEROL Inhaler(NF) [VENTOLIN 2 puff IH Q4-6H PRN #1 inha 07/24/18 Unknown Rx Inhaler(NF)] Prednisone [predniSONE 10 mg 10 mg PO .TAPER #1 tab.ds.pk 09/16/18 Unknown Rx (6-Day Pack, 21 Tabs)] amLODIPine 5 mg PO DAILY #90 tab 09/16/18 Unknown Rx Albuterol Sulfate [Proventil Hfa] 2 puff IH Q4HR PRN #1 hfa.aer.ad 09/20/18 Unknown Rx predniSONE [Deltasone] 50 mg PO QDAY #5 tab 09/20/18 Unknown Rx Albuterol INH(or & Nicu Only) 2 puff IH QID PRN #1 inhalation 11/21/18 Unknown Rx [ProAir HFA Inhaler] Prednisone [predniSONE 10 mg 10 mg PO .TAPER #1 tab.ds.pk 11/21/18 Unknown Rx (6-Day Pack, 21 Tabs)] ALBUTEROL NEB's [Proventil 0.083% 2.5 mg IH TID PRN #20 neb 03/23/19 Unknown Rx NEBS] Albuterol INH(or & Nicu Only) 2 puff IH QID PRN #1 inhalation 03/23/19 Unknown Rx [ProAir HFA Inhaler] predniSONE [Deltasone] 20 mg PO QDAY #5 tab 03/23/19 Unknown Rx Doxycycline Hyclate [Doxycycline 100 mg PO Q12HR 10 Days #20 tab 05/05/19 Unknown Rx Hyclate TAB] methylPREDNISolone [Medrol 4MG 4 mg PO DAILY 6 Days #1 tab.ds.pk 05/05/19 Unknown Rx DOSEPAK (21 tabs)] Allergies Allergy/AdvReac Type Severity Reaction Status Date / Time No Known Allergies Allergy Verified 09/16/18 17:33 ED Review of Systems ROS: Stated complaint: ASTHMA Other details as noted in HPI Constitutional: denies: chills, fever Eyes: denies: eye pain, eye discharge, vision change ENT: denies: ear pain, throat pain Respiratory: cough, shortness of breath, wheezing Cardiovascular: denies: chest pain, palpitations Endocrine: no symptoms reported Gastrointestinal: denies: abdominal pain, nausea, diarrhea Genitourinary: denies: urgency, dysuria, discharge Musculoskeletal: denies: back pain, joint swelling, arthralgia Skin: denies: rash, lesions Neurological: denies: headache, weakness, paresthesias Psychiatric: denies: anxiety, depression Hematological/Lymphatic: denies: easy bleeding, easy bruising ED Past Medical Hx - Past Medical History Previous Medical History?: Yes Hx Hypertension: Yes (non-compliant) Hx Asthma: Yes Additional medical history: Seasonal Allergies - Surgical History Past Surgical History?: No - Family History Family history: no significant - Social History Smoking Status: Never Smoker Substance Use Type: None - Medications Home Medications: Home Medications Medication Instructions Recorded Confirmed Last Taken Type Triamter/Hctz 37.5-25 mg 1 tab PO QDAY #30 tablet 04/19/18 Unknown Rx [Maxzide-25] ALBUTEROL Inhaler(NF) [VENTOLIN 1 puff IH Q4HR PRN #1 inha 06/14/18 Unknown Rx Inhaler(NF)] Benzonatate [Tessalon Perles] 100 mg PO Q8HR PRN #20 capsule 06/14/18 Unknown Rx predniSONE [Prednisone] 50 mg PO DAILY #5 tablet 06/14/18 Unknown Rx ALBUTEROL Inhaler(NF) [VENTOLIN 2 puff IH Q4-6H PRN #1 inha 07/24/18 Unknown Rx Inhaler(NF)] Prednisone [predniSONE 10 mg 10 mg PO .TAPER #1 tab.ds.pk 09/16/18 Unknown Rx (6-Day Pack, 21 Tabs)] amLODIPine 5 mg PO DAILY #90 tab 09/16/18 Unknown Rx Albuterol Sulfate [Proventil Hfa] 2 puff IH Q4HR PRN #1 hfa.aer.ad 09/20/18 Unknown Rx predniSONE [Deltasone] 50 mg PO QDAY #5 tab 09/20/18 Unknown Rx Albuterol INH(or & Nicu Only) 2 puff IH QID PRN #1 inhalation 11/21/18 Unknown Rx [ProAir HFA Inhaler] Prednisone [predniSONE 10 mg 10 mg PO .TAPER #1 tab.ds.pk 11/21/18 Unknown Rx (6-Day Pack, 21 Tabs)] ALBUTEROL NEB's [Proventil 0.083% 2.5 mg IH TID PRN #20 neb 03/23/19 Unknown Rx NEBS] Albuterol INH(or & Nicu Only) 2 puff IH QID PRN #1 inhalation 03/23/19 Unknown Rx [ProAir HFA Inhaler] predniSONE [Deltasone] 20 mg PO QDAY #5 tab 03/23/19 Unknown Rx Doxycycline Hyclate [Doxycycline 100 mg PO Q12HR 10 Days #20 tab 05/05/19 Unknown Rx Hyclate TAB] methylPREDNISolone [Medrol 4MG 4 mg PO DAILY 6 Days #1 tab.ds.pk 05/05/19 Unknown Rx DOSEPAK (21 tabs)] ED Physical Exam - General Limitations: No Limitations General appearance: alert, in no apparent distress - Head Head exam: Present: atraumatic, normocephalic - Eye Eye exam: Present: normal appearance - ENT ENT exam: Present: mucous membranes moist - Neck Neck exam: Present: normal inspection - Respiratory Respiratory exam: Present: normal lung sounds bilaterally, decreased breath sounds, prolonged expiratory. Absent: respiratory distress, wheezes, rales, rhonchi, chest wall tenderness, accessory muscle use - Cardiovascular Cardiovascular Exam: Present: regular rate, normal rhythm. Absent: systolic murmur, diastolic murmur, rubs, gallop - GI/Abdominal GI/Abdominal exam: Present: soft, normal bowel sounds - Extremities Exam Extremities exam: Present: normal inspection - Back Exam Back exam: Present: normal inspection - Neurological Exam Neurological exam: Present: alert, oriented X3 - Psychiatric Psychiatric exam: Present: normal affect, normal mood - Skin Skin exam: Present: warm, dry, intact, normal color. Absent: rash ED Course Vital Signs 05/05/19 05/05/19 05/05/19 00:18 00:22 00:30 Temperature 98.9 F Pulse Rate 123 H Respiratory 22 Rate Blood Pressure 158/89 135/91 O2 Sat by Pulse 96 96 94 Oximetry 05/05/19 05/05/19 05/05/19 00:45 01:00 01:15 Temperature Pulse Rate Respiratory Rate Blood Pressure 131/84 141/88 120/85 O2 Sat by Pulse 95 94 96 Oximetry 05/05/19 05/05/19 01:30 01:50 Temperature 98.9 F Pulse Rate 98 H Respiratory 20 Rate Blood Pressure 116/74 O2 Sat by Pulse 95 96 Oximetry - Reevaluation(s) Reevaluation #1: She states she feels better. Patient's lungs are clear. Patient states her symptoms have resolved. Patient's heart rate has improved. Patient is stable for discharge. I discussed all results the patient. I discussed plan of the patient. Patient agrees with the plan of care. Patient will be discharged ho me. Patient given discharge instructions. Patient voiced understanding of discharge instructions. 05/05/19 01:10 ED Medical Decision Making - Lab Data Result diagrams: 05/05/19 00:34 05/05/19 00:34 - Radiology Data Radiology results: report reviewed, image reviewed CHEST 1 VIEW INDICATION: Dyspnea. COMPARISON: 11/21/2018 FINDINGS: Support devices: None. Heart: Within normal limits. Lungs/Pleura: No acute air space or interstitial disease. Additional findings: None. IMPRESSION: 1. No acute findings. - Medical Decision Making Patient is a 38-year-old female that presents to emergency with complaints of asthmatic breathing and cough and wheezing. Patient denied fever. Patient denied chills. Patient was brought in by EMS and was given albuterol in route. Patient's lung sounds were clear on initial evaluation. Patient was given Solu- Medrol and patient states that she was asymptomatic and feels much better. The patient's clinical findings are consistent with an asthma exacerbation and bronchitis. Patient given antibiotics and steroids and discharged home. Patient's chest x-ray was negative for acute findings. Patient's labs are unremarkable. - Differential Diagnosis asthma exacerbation, bronchitis, cough, wheeze Critical care attestation.: If time is entered above; I have spent that time in minutes in the direct care of this critically ill patient, excluding procedure time. ED Disposition Clinical Impression: Bronchitis, SOB (shortness of breath), Cough Asthma exacerbation Qualifiers: Asthma severity: unspecified severity Asthma persistence: unspecified Qualified Code(s): J45.901 - Unspecified asthma with (acute) exacerbation Disposition: - TO HOME OR SELFCARE Is pt being admited?: No Does the pt Need Aspirin: No Condition: Stable Instructions: Asthma (ED), Acute Bronchitis (ED) Additional Instructions: Patient to follow up with primary care in 2-3 days. Patient to take medicines as directed. Patient to return to your condition worsens, changes or new symptoms arise. Patient to increase water. Patient to rest. Patient to continue her nebulizer and inhaler treatments. Prescriptions: Doxycycline Hyclate [Doxycycline Hyclate TAB] 100 mg PO Q12HR 10 Days #20 tab methylPREDNISolone [Medrol 4MG DOSEPAK (21 tabs)] 4 mg PO DAILY 6 Days #1 tab.ds.pk Referrals: PRIMARY CARE, [Primary Care Provider] - 2-3 Days Time of Disposition: 01:30
--- NOTE | 2019-05-05 00:46 | XRay Report ---
CHEST 1 VIEW INDICATION: Dyspnea. COMPARISON: 11/21/2018 FINDINGS: Support devices: None. Heart: Within normal limits. Lungs/Pleura: No acute air space or interstitial disease. Additional findings: None. IMPRESSION: 1. No acute findings. Signer Name: Garfield Beltre MD Signed: 05/05/2019 12:42 AM Workstation Name: [id number]
[2019-05-05 00:50] LABS: Basophils % (Auto) 0.4 % (0.0-1.8); Eosinophils # (Auto) 1.1 K/mm3 (0.0-0.4); Eosinophils % (Auto) 12.1 % (0.0-4.3); Hematocrit 35.2 % (30.3-42.9); Hemoglobin 11.2 gm/dl (10.1-14.3); Lymphocytes # (Auto) 1.9 K/mm3 (1.2-5.4); Lymphocytes % (Auto) 21.2 % (13.4-35.0); Mean Corpuscular HGB Conc 32 % (30-34); Mean Corpuscular Volume 80 fl (79-97); Monocytes # (Auto) 0.7 K/mm3 (0.0-0.8); Monocytes % (Auto) 7.2 % (0.0-7.3); Platelet Count 371 K/mm3 (140-440); Red Blood Count 4.38 M/mm3 (3.65-5.03); Red Cell Distribution Width 16.9 % (13.2-15.2)
[2019-05-05 01:13] LABS: Alanine Aminotransferase 9 units/L (7-56); Albumin 3.9 g/dL (3.9-5); BUN/Creatinine Ratio 11; Blood Urea Nitrogen 12 mg/dL (7-17); Calcium 9.1 mg/dL (8.4-10.2); Hemolysis Index 6
[2019-05-05 01:50] VITALS: BP 116/74
== END 2019-05-05 01:50 | disposition home or self-care (01) ==
LOC: ED 00:13
DX: J40 Bronchitis, not specified as acute or chronic (principal); R06.02 Shortness of breath; R05 Cough; I10 Essential (primary) hypertension; Z79.899 Other long term (current) drug therapy
CPT/HCPCS: 36415; 71045; 80053; 85025; 96374; 99284; J2930

== ENCOUNTER 2019-05-28 00:13 | Emergency (ER) | payer MEDICARE ==
[2019-05-28] MEDS ORDERED: methylPREDNISolone Sod Succinate 125 MG/2 ML INJ IV ONE (00:39)
[2019-05-28] MEDS ORDERED: ALBUTEROL 2.5 MG/3 ML NEBU IH ONE (00:39)
[2019-05-28] MEDS ORDERED: IPRATROPIUM 0.02% NEBU 2.5 ML IH ONE (00:39)
[2019-05-28] MEDS ORDERED: EPINEPHrine/PF (1:1,000) 1 MG/1 ML INJ SUB-Q ONE (00:39)
[2019-05-28] MEDS ORDERED: SODIUM CHLORIDE 0.9% 1000 ML 1,000 ML IV ONE (00:39)
[2019-05-28] MEDS ORDERED: MAGNESIUM SULFATE 2 GM/50 ML BAG IV ONE (00:40)
--- NOTE | 2019-05-28 00:40 | Emergency Department Report ---
ED Asthma HPI - General Chief Complaint: Dyspnea/Respdistress Stated Complaint: DIFFICULTY IN BREATHING Time Seen by Provider: 05/28/19 00:38 Source: patient, EMS ([facility] disclaimed), RN notes reviewed, old records reviewed Mode of arrival: Stretcher Limitations: No Limitations, Physical Limitation - History of Present Illness Initial Comments: Patient is a 38-year-old female who states that she is not , who denies DVT and pulmonary embolism risk factors, who reports that she has not given in the past 6 weeks, route to the hospital by EMS for cough, wheezing and shortness of breath. She believes that she has bronchitis. She took her albuterol at home. Apparently EMS did not give the patient any medications in the field. She denies physical pain at this time. She is not been hospitalized overnight or intubated in the past. MD Complaint: "asthma attack", shortness of breath, wheezing -: Gradual, days(s) Asthma History: history of prior ED visit Context: recent URI Associated Symptoms: dry cough Treatments Prior to Arrival: inhaled bronchodilator - Related Data Previous Rx's Medication Instructions Recorded Last Taken Type Triamter/Hctz 37.5-25 mg 1 tab PO QDAY #30 tablet 04/19/18 Unknown Rx [Maxzide-25] ALBUTEROL Inhaler(NF) [VENTOLIN 1 puff IH Q4HR PRN #1 inha 06/14/18 Unknown Rx Inhaler(NF)] Benzonatate [Tessalon Perles] 100 mg PO Q8HR PRN #20 capsule 06/14/18 Unknown Rx predniSONE [Prednisone] 50 mg PO DAILY #5 tablet 06/14/18 Unknown Rx ALBUTEROL Inhaler(NF) [VENTOLIN 2 puff IH Q4-6H PRN #1 inha 07/24/18 Unknown Rx Inhaler(NF)] Prednisone [predniSONE 10 mg 10 mg PO .TAPER #1 tab.ds.pk 09/16/18 Unknown Rx (6-Day Pack, 21 Tabs)] amLODIPine 5 mg PO DAILY #90 tab 09/16/18 Unknown Rx Albuterol Sulfate [Proventil Hfa] 2 puff IH Q4HR PRN #1 hfa.aer.ad 09/20/18 Unknown Rx predniSONE [Deltasone] 50 mg PO QDAY #5 tab 09/20/18 Unknown Rx Albuterol INH(or & Nicu Only) 2 puff IH QID PRN #1 inhalation 11/21/18 Unknown Rx [ProAir HFA Inhaler] Prednisone [predniSONE 10 mg 10 mg PO .TAPER #1 tab.ds.pk 11/21/18 Unknown Rx (6-Day Pack, 21 Tabs)] ALBUTEROL NEB's [Proventil 0.083% 2.5 mg IH TID PRN #20 neb 03/23/19 Unknown Rx NEBS] Albuterol INH(or & Nicu Only) 2 puff IH QID PRN #1 inhalation 03/23/19 Unknown Rx [ProAir HFA Inhaler] predniSONE [Deltasone] 20 mg PO QDAY #5 tab 03/23/19 Unknown Rx Doxycycline Hyclate [Doxycycline 100 mg PO Q12HR 10 Days #20 tab 05/05/19 Unknown Rx Hyclate TAB] methylPREDNISolone [Medrol 4MG 4 mg PO DAILY 6 Days #1 tab.ds.pk 05/05/19 Unknown Rx DOSEPAK (21 tabs)] Albuterol Sulfate [Albuterol 0.63% 0.63 mg IH Q4HR PRN #2 ml 05/28/19 Unknown Rx NEBS] Albuterol Sulfate [Proair 90 mcg IH Q4HR PRN #2 aer.pow.ba 05/28/19 Unknown Rx Respiclick] Benzonatate [Tessalon Perles] 100 mg PO Q8HR PRN #30 capsule 05/28/19 Unknown Rx predniSONE [Deltasone] 40 mg PO QDAY #8 tab 05/28/19 Unknown Rx Allergies Allergy/AdvReac Type Severity Reaction Status Date / Time seasonal Allergy Unknown Uncoded 05/28/19 00:26 ED Review of Systems ROS: Stated complaint: DIFFICULTY IN BREATHING Other details as noted in HPI Constitutional: denies: fever Eyes: denies: eye discharge ENT: congestion Respiratory: cough, shortness of breath, SOB with exertion, wheezing Cardiovascular: denies: syncope Gastrointestinal: denies: abdominal pain Genitourinary: as per HPI Musculoskeletal: as per HPI Skin: as per HPI Neurological: as per HPI Psychiatric: as per HPI Hematological/Lymphatic: as per HPI ED Past Medical Hx - Past Medical History Previous Medical History?: Yes Hx Hypertension: Yes (non-compliant) Hx Asthma: Yes Additional medical history: Seasonal Allergies - Surgical History Past Surgical History?: No - Social History Smoking Status: Never Smoker Substance Use Type: None - Medications Home Medications: Home Medications Medication Instructions Recorded Confirmed Last Taken Type Triamter/Hctz 37.5-25 mg 1 tab PO QDAY #30 tablet 04/19/18 Unknown Rx [Maxzide-25] ALBUTEROL Inhaler(NF) [VENTOLIN 1 puff IH Q4HR PRN #1 inha 06/14/18 Unknown Rx Inhaler(NF)] Benzonatate [Tessalon Perles] 100 mg PO Q8HR PRN #20 capsule 06/14/18 Unknown Rx predniSONE [Prednisone] 50 mg PO DAILY #5 tablet 06/14/18 Unknown Rx ALBUTEROL Inhaler(NF) [VENTOLIN 2 puff IH Q4-6H PRN #1 inha 07/24/18 Unknown Rx Inhaler(NF)] Prednisone [predniSONE 10 mg 10 mg PO .TAPER #1 tab.ds.pk 09/16/18 Unknown Rx (6-Day Pack, 21 Tabs)] amLODIPine 5 mg PO DAILY #90 tab 09/16/18 Unknown Rx Albuterol Sulfate [Proventil Hfa] 2 puff IH Q4HR PRN #1 hfa.aer.ad 09/20/18 Unknown Rx predniSONE [Deltasone] 50 mg PO QDAY #5 tab 09/20/18 Unknown Rx Albuterol INH(or & Nicu Only) 2 puff IH QID PRN #1 inhalation 11/21/18 Unknown Rx [ProAir HFA Inhaler] Prednisone [predniSONE 10 mg 10 mg PO .TAPER #1 tab.ds.pk 11/21/18 Unknown Rx (6-Day Pack, 21 Tabs)] ALBUTEROL NEB's [Proventil 0.083% 2.5 mg IH TID PRN #20 neb 03/23/19 Unknown Rx NEBS] Albuterol INH(or & Nicu Only) 2 puff IH QID PRN #1 inhalation 03/23/19 Unknown Rx [ProAir HFA Inhaler] predniSONE [Deltasone] 20 mg PO QDAY #5 tab 03/23/19 Unknown Rx Doxycycline Hyclate [Doxycycline 100 mg PO Q12HR 10 Days #20 tab 05/05/19 Unknown Rx Hyclate TAB] methylPREDNISolone [Medrol 4MG 4 mg PO DAILY 6 Days #1 tab.ds.pk 05/05/19 Unknown Rx DOSEPAK (21 tabs)] Albuterol Sulfate [Albuterol 0.63% 0.63 mg IH Q4HR PRN #2 ml 05/28/19 Unknown Rx NEBS] Albuterol Sulfate [Proair 90 mcg IH Q4HR PRN #2 aer.pow.ba 05/28/19 Unknown Rx Respiclick] Benzonatate [Tessalon Perles] 100 mg PO Q8HR PRN #30 capsule 05/28/19 Unknown Rx predniSONE [Deltasone] 40 mg PO QDAY #8 tab 05/28/19 Unknown Rx ED Physical Exam - General Limitations: No Limitations General appearance: alert, anxious - Head Head exam: Present: atraumatic, normocephalic - Eye Eye exam: Present: normal appearance, EOMI. Absent: nystagmus - ENT ENT exam: Present: normal exam, normal orophraynx, mucous membranes moist, normal external ear exam - Neck Neck exam: Present: normal inspection, full ROM. Absent: tenderness, meningismus - Respiratory Respiratory exam: Present: respiratory distress, wheezes, rhonchi, accessory muscle use - Cardiovascular Cardiovascular Exam: Present: normal rhythm, tachycardia, normal heart sounds. Absent: systolic murmur, diastolic murmur, rubs, gallop - GI/Abdominal GI/Abdominal exam: Present: soft. Absent: distended, tenderness, guarding, rebound, rigid, pulsatile mass - Extremities Exam Extremities exam: Present: normal inspection, full ROM. Absent: pedal edema, calf tenderness - Back Exam Back exam: Present: normal inspection - Neurological Exam Neurological exam: Present: alert, oriented X3 - Psychiatric Psychiatric exam: Present: normal affect, normal mood - Skin Skin exam: Present: warm, dry, intact, normal color. Absent: rash ED Course Vital Signs 05/28/19 05/28/19 05/28/19 00:30 00:32 00:52 Temperature 98.5 F Pulse Rate 118 H 121 H Pulse Rate [ 116 H Bilateral] Respiratory 13 27 H Rate Respiratory 22 Rate [Bilateral ] Blood Pressure 131/87 Blood Pressure 142/93 [Right] O2 Sat by Pulse 95 93 Oximetry 05/28/19 05/28/19 05/28/19 01:00 01:30 02:00 Temperature Pulse Rate 106 H 102 H 118 H Pulse Rate [ Bilateral] Respiratory 19 15 19 Rate Respiratory Rate [Bilateral ] Blood Pressure 133/88 128/84 125/84 Blood Pressure [Right] O2 Sat by Pulse 99 100 100 Oximetry 05/28/19 05/28/19 05/28/19 02:30 03:00 03:30 Temperature Pulse Rate 110 H 109 H 115 H Pulse Rate [ Bilateral] Respiratory 12 15 14 Rate Respiratory Rate [Bilateral ] Blood Pressure 138/87 126/72 118/64 Blood Pressure [Right] O2 Sat by Pulse 100 100 100 Oximetry 05/28/19 04:07 Temperature Pulse Rate 105 H Pulse Rate [ Bilateral] Respiratory 20 Rate Respiratory Rate [Bilateral ] Blood Pressure 118/64 Blood Pressure [Right] O2 Sat by Pulse 99 Oximetry - Reevaluation(s) Reevaluation #1: 05/28/19 01:39 Feeling improved. Complain of itching which has been going on for a while. Patient examined head to toe, with nurse Honorio as a applications intern. No obvious skin rashes or skin lesions noted. Atarax ordered. Reevaluation #2: 05/28/19 02:34 Wheezing improved, work of breathing improved, however, still receiving albuterol therapy. Care will be transferred to the overnight physician, Dr. Brian Mcgovern, to reassess patient once she is completed her breathing treatments. Her tachycardia is appreciated, this is likely secondary to albuterol and epinephrine administration. Patient will likely be able to be discharged with outpatient management. Critical care attestation.: If time is entered above; I have spent that time in minutes in the direct care of this critically ill patient, excluding procedure time. ED Disposition Clinical Impression: Bronchitis Disposition: [id number] TO HOME OR SELFCARE Is pt being admited?: No Does the pt Need Aspirin: No Condition: Stable Instructions: Acute Bronchitis (ED) Additional Instructions: Take the medications as directed, steroids on a daily basis for the next 4 days, and albuterol inhaler/nebulizer for the next 5 days as directed. Avoid co nsumption of tobacco, and avoid secondhand exposure to smoke products. We recommend follow-up with her primary care doctor within 7 to 10 days. Advance diet as tolerated. Return to the emergency room right away with new, worsened or different symptoms, or symptoms not present on the initial emergency room evaluation Prescriptions: Albuterol Sulfate [Albuterol 0.63% NEBS] 0.63 mg IH Q4HR PRN #2 ml PRN Reason: Wheezing predniSONE [Deltasone] 40 mg PO QDAY #8 tab Albuterol Sulfate [Proair Respiclick] 90 mcg IH Q4HR PRN #2 aer.pow.ba PRN Reason: Wheezing Benzonatate [Tessalon Perles] 100 mg PO Q8HR PRN #30 capsule PRN Reason: Cough Referrals: [facility] [Provider Group] - 3-5 Days [facility] [Provider Group] - 3-5 Days
--- NOTE | 2019-05-28 01:05 | XRay Report ---
CHEST 1 VIEW INDICATION / CLINICAL INFORMATION: sob. COMPARISON: 05/05/2019 FINDINGS: SUPPORT DEVICES: None. HEART / MEDIASTINUM: Moderately enlarged but stable. LUNGS / PLEURA: No significant pulmonary or pleural abnormality. No pneumothorax. ADDITIONAL FINDINGS: No significant additional findings. IMPRESSION: 1. No significant change Signer Name: Duke Camejo MD Signed: 05/28/2019 1:01 AM Workstation Name: [id number]
[2019-05-28] MEDS ORDERED: hydrOXYzine HCL 25 MG TAB PO ONE (01:39)
[2019-05-28 04:51] VITALS: BP 118/64
== END 2019-05-28 04:20 | disposition home or self-care (01) ==
LOC: ED 00:13
DX: J40 Bronchitis, not specified as acute or chronic (principal); I10 Essential (primary) hypertension; J45.909 Unspecified asthma, uncomplicated; Z91.09 Other allergy status, other than to drugs and biological substances; Z79.899 Other long term (current) drug therapy
CPT/HCPCS: 71045; 94644; 96365; 96372; 96375; 99284; J0171; J2930; J3475; J7030

== ENCOUNTER 2020-01-15 09:46 | Outpatient (CLI) | payer MEDICARE, OTHER | END 2020-01-15 09:47 | disposition home or self-care (01) | LOC: PF 09:46 | PROVIDERS: ATTEND Internal Medicine | DX: J45.909 Unspecified asthma, uncomplicated (principal); R56.9 Unspecified convulsions | CPT/HCPCS: 94010; 94729 ==